=== PATIENT | female | born 1995 | race Caucasian/White ===

== ENCOUNTER → 2017-02-16 | Outpatient (CLI) | payer OTHER ==
[2017-02-16 18:54] LABS: INFLUENZA A PCR POS for Influ A (NEG); INFLUENZA B PCR Neg for Influ B (NEG)
== END | disposition home or self-care (01) ==
LOC: C.LABMFLN 14:07
PROVIDERS: ATTEND Physician Assistant
DX: R50.9 Fever, unspecified (principal)